=== PATIENT | male | born 1955 | race African-American/Black ===

== ENCOUNTER 2018-06-11 21:37 | Emergency (ER) | payer BC ==
[2018-06-15 23:56] LABS: Chlamydia by PCR Not Detected (NotDetected); GC by PCR Not Detected (NotDetected)
== END 2018-06-11 22:15 | disposition home or self-care (01) ==
LOC: ERS 21:37
DX: R21 Rash and other nonspecific skin eruption (principal); E11.9 Type 2 diabetes mellitus without complications; E78.00 Pure hypercholesterolemia, unspecified; K21.9 Gastro-esophageal reflux disease without esophagitis; I10 Essential (primary) hypertension
CPT/HCPCS: 87491; 87591; 99283

== ENCOUNTER 2021-08-04 18:26 | Emergency (ER) | payer BC, MEDICARE ==
[2021-08-04 19:46] LABS: Bilirubin Negative (Negative); Blood, Urine Negative (Negative); Clarity Clear (Clear); Glucose, Urine (Dipstick) Normal (Negative); Ketone, Urine Negative (Negative); Leukocyte Negative Leu/uL (Negative); Nitrite Negative (Negative); Protein, Urine (Dipstick) 20 mg/dL (Neg-Trace); Specific Gravity, Urine 1.022 (1.002-1.036); Urobilinogen Normal mg/dL (Less than 2); pH, Urine 5.5 (5.0-9.0)
== END 2021-08-04 21:41 | disposition home or self-care (01) ==
LOC: ERS 18:26
DX: N43.3 Hydrocele, unspecified (principal); E11.9 Type 2 diabetes mellitus without complications; E78.00 Pure hypercholesterolemia, unspecified; K21.9 Gastro-esophageal reflux disease without esophagitis; I10 Essential (primary) hypertension; Z79.84 Long term (current) use of oral hypoglycemic drugs
CPT/HCPCS: 76870; 81003; 93976

== ENCOUNTER 2022-02-21 10:08 | Outpatient (CLI) | payer MEDICARE | END 2022-02-21 10:09 | disposition home or self-care (01) | LOC: BICULT 10:08 | PROVIDERS: ATTEND Nurse Practitioner Family | DX: N50.89 Other specified disorders of the male genital organs (principal); N43.3 Hydrocele, unspecified | CPT/HCPCS: 76870; 93976 ==